=== PATIENT | female | born 1935 | race Hispanic/Latino ===

== ENCOUNTER 2018-02-19 16:23 | Emergency (ER) | payer MEDICARE, BC ==
[2018-02-19 16:24] VITALS: BMI 18.3
--- NOTE | 2018-02-19 16:29 | ED PDOC ---
Arrival/HPI - General Historian: Patient <Mikhail Leo - Last Filed: 02/19/18 17:50> <Emily Mendez - Last Filed: 02/19/18 18:32> - General Time Seen by Provider: 02/19/18 16:27 - History of Present Illness Narrative History of Present Illness (Text): 02/19/18 16:29 82 y/o female, nkda, no significant pmh except history of lt. wrist distal radial fracture, nkda, not on any blood thinners or anticoagulant, GCS 15, c/o rt. wrist pain s/p fall on the rt. wrist at home about 2 hours ago. Pt. stated that she tripped over the carpeted floor at home, landed on the rt. wrist, no head/neck/back injury, no LOC, no numbness or tingling, no chest pain or shortness of breath prior to the fall, walk to the ER with the without limping or any discomfort, no palpitation, no rash, no hematuria, no flank pain , no other medical or psychological complaints. (Mikhail Leo) Past Medical History - Provider Review Nursing Documentation Reviewed: Yes - Infectious Disease Hx of Infectious Diseases: None - Psychiatric Hx Substance Use: No <Mikhail Leo - Last Filed: 02/19/18 17:50> Family/Social History - Physician Review Nursing Documentation Reviewed: Yes Family/Social History: Unknown Family HX Smoking Status: Never Smoked Hx Alcohol Use: No Hx Substance Use: No <Mikhail Leo - Last Filed: 02/19/18 17:50> Allergies/Home Meds <Mikhail Leo - Last Filed: 02/19/18 17:50> <Emily Mendez - Last Filed: 02/19/18 18:32> Allergies/Adverse Reactions: Allergies No Known Allergies Allergy (Verified 02/19/18 16:47) Review of Systems - Review of Systems Constitutional: absent: Fatigue, Fevers Eyes: absent: Vision Changes ENT: absent: Hearing Changes Respiratory: absent: SOB, Cough Cardiovascular: absent: Chest Pain, Syncope Gastrointestinal: absent: Abdominal Pain, Nausea, Vomiting Musculoskeletal: Arthralgias, Joint Swelling. absent: Back Pain, Neck Pain, Myalgias Skin: absent: Rash, Pruritis Neurological: absent: Headache, Dizziness Psychiatric: absent: Anxiety, Depression, Suicidal Ideation <Mikhail Leo Q - Last Filed: 02/19/18 17:50> Physical Exam Vital Signs Reviewed: Yes Temperature: Afebrile Blood Pressure: Hypertensive Pulse: Regular Respiratory Rate: Normal Appearance: Positive for: Well-Appearing, Non-Toxic, Comfortable Pain Distress: Mild Mental Status: Positive for: Alert and Oriented X 3 - Systems Exam Head: Present: Atraumatic, Normocephalic, Other (no facial tenderness or swelling. ). No: Tenderness, Contusion, Swelling, Ecchymosis, Abrasion, Laceration Pupils: Present: PERRL Extroacular Muscles: Present: EOMI Conjunctiva: Present: Normal Ears: Present: NORMAL TM, Normal Canal. No: Erythema Mouth: Present: Moist Mucous Membranes Pharnyx: Present: Normal. No: ERYTHEMA, EXUDATE, TONSILS ENLARGED, Uvular Deviation Nose (External): Present: Atraumatic. No: Abrasion, Contusion, Laceration Nose (Internal): Present: Normal Inspection, No Active Bleeding. No: Rhinorrhea Neck: Present: Normal Range of Motion, Trachea Midline. No: Meningeal Signs, MIDLINE TENDERNESS, Paraspinal Tenderness, Lymphadenopathy Respiratory/Chest: Present: Clear to Auscultation, Good Air Exchange. No: Respiratory Distress, Accessory Muscle Use, Wheezes, Decreased Breath Sounds, Rales, Retracting, Rhonchi, Tachypneic, Tender to Palpation Cardiovascular: Present: Regular Rate and Rhythm, Normal S1, S2. No: Murmurs Abdomen: Present: Other (no ecchymosis). No: Tenderness, Distention, Peritoneal Signs, Rebound, Guarding Back: Present: Normal Inspection, Other (no bruising, no step off on the cervical to LS spine. ). No: CVA Tenderness, Midline Tenderness, Paraspinal Tenderness, Pain with Leg Raise, Decubitus Ulcer Upper Extremity: Present: Normal Inspection, Normal ROM, NORMAL PULSES, Neurovascularly Intact, Capillary Refill < 2s, Other (Rt. hand/wrist: +ttp on the distal radial and ulnar styloid region with mild swelling, no scaphoid tenderness, no hand/finger tenderness, FROM without limitation, sensation intact , motor 5/5, +radial pulse, capillary refill< 2 seconds, skin intact, neurovascular intact. ). No: Cyanosis, Edema Lower Extremity: Present: Normal Inspection, NORMAL PULSES, Normal ROM, Neurovascularly Intact, Capillary Refill < 2 s. No: Edema, CALF TENDERNESS, Julia's Sign, Tenderness, Swelling, Erythema, Deformity, Temperature Abnormalties Neurological: Present: GCS=15, CN II-XII Intact, Speech Normal Skin: Present: Warm, Dry, Normal Color. 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 wrist xray, stated that she has no other injury or pain except rt. wrist, discussed with Dr. Mendez about the case/physical examination and the patient's declined of other testing which he agreed with the patient's decision as the patient is AOx4. Pt. agreed that she would take all responsibilities of declining the full medical care, risks and benefits explained. -Tylenol ordered for pain as she declined narcotics -Rt. wrist xray reviewed with Dr. Mendez show there is rt. distal radial and ulnar styloid fracture, rt. wrist sugartongue splint applied by me with neurovascular intact, sling given, copy of the xray given which she will see Dr. Quinn for follow up. -Discharge home with tylenol, sugartongue splint, sling, copy of the xray film, follow up with your own pmd and orthopedic within 2 days, return to the ER for any new or worsening signs or symptoms. (Mikhail Leo) - RAD Interpretation Radiology Orders: 02/19/18 16:49 WRIST, RIGHT 3 VIEWS [RAD] Stat HISTORY: rt. wrist injury s/p fall COMPARISON: None. FINDINGS: BONES: Acute ulnar styloid fracture. Acute fracture distal radius. JOINTS: Normal. No dislocation. SOFT TISSUES: Soft tissue swelling attests to the acuity of the fracture. OTHER FINDINGS: None. IMPRESSION: Acute fractures distal radius and ulnar styloid. Major fracture fragments are anatomically aligned. 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 <Emily Mendez - Last Filed: 02/19/18 18:32> Disposition/Present on Arrival - Present on Arrival Any Indicators Present on Arrival: No History of DVT/PE: No History of Uncontrolled Diabetes: No Urinary Catheter: No History of Decub. Ulcer: No History Surgical Site Infection Following: None - Disposition Have Diagnosis and Disposition been Completed?: Yes Disposition Time: 17:13 Patient Plan: Discharge <Mikhail Leo - Last Filed: 02/19/18 17:50> <Emily Mendez - Last Filed: 02/19/18 18:32> - Disposition Diagnosis: Radial head fracture, closed, Fracture of ulnar styloid, Accidental fall, Non- compliance Disposition: HOME/ ROUTINE Patient Problems: Current Active Problems Problem Status Onset Accidental fall Acute Fracture of ulnar styloid Acute Non-compliance Acute Radial head fracture, closed Acute Condition: GOOD Additional Instructions: -Discharge home with tylenol, sugartongue splint, sling, copy of the xray film, follow up with your own pmd and orthopedic within 2 days, return to the ER for any new or worsening signs or symptoms. Prescriptions: Acetaminophen [Tylenol 325mg tab] 2 tab PO QID PRN #30 tab PRN Reason: Other Referrals: René Greene DO [Staff Provider] - Follow up with primary Bob Rogel MD [Staff Provider] - Follow up with primary Forms: WORK NOTE
[2018-02-19 16:54] VITALS: TEMP 98.2
--- NOTE | 2018-02-19 17:10 | RAD ---
PROCEDURE: Right Wrist Radiographs. HISTORY: rt. wrist injury s/p fall COMPARISON: None. FINDINGS: BONES: Acute ulnar styloid fracture. Acute fracture distal radius. JOINTS: Normal. No dislocation. SOFT TISSUES: Soft tissue swelling attests to the acuity of the fracture. OTHER FINDINGS: None. IMPRESSION: Acute fractures distal radius and ulnar styloid. Major fracture fragments are anatomically aligned. Concordant results with the preliminary interpretation rendered by the emergency department physician procedure.
[2018-02-19 17:23] VITALS: BP 167/76; PULSE 92; RESP 18; O2SAT 99
== END 2018-02-19 18:00 | disposition home or self-care (01) ==
LOC: ED 16:23
DX: S52.121A Displaced fracture of head of right radius, initial encounter for closed fracture (principal); S52.611A Displaced fracture of right ulna styloid process, initial encounter for closed fracture; W01.0XXA Fall on same level from slipping, tripping and stumbling without subsequent striking against object, initial encounter; Y92.009 Unspecified place in unspecified non-institutional (private) residence as the place of occurrence of the external cause; Z91.19 Patient's noncompliance with other medical treatment and regimen